=== PATIENT | male | born 1960 | race Caucasian/White ===

== ENCOUNTER 2017-10-10 12:42 | Emergency (ER) | payer SELFPAY ==
[~2017-10-10] VITALS: Ht 172.7 cm; Wt 59.1 kg
[2017-10-10 12:57] VITALS: BP 146/85; PULSE 107; RESP 20; TEMP 97.7; O2SAT 91
--- NOTE | 2017-10-10 14:57 | PD ---
HPI Chief Complaint: Alcohol/Drug Intoxication Time Seen by Provider: 14:28 Travel History International Travel<30 days: No Contact w/Intl Traveler<30days: No Traveled to known affect area: No History of Present Illness HPI 57-year-old male presents to the emergency department requesting detox because he has been drinking alcohol "way too much for the past 2 months." He denies suicidal or homicidal ideations. Reports hearing voices and seeing things. Denies illicit drug use. Says he last had alcohol today, prior to the police dropping him off at the emergency department for detox. Reports being homeless. Says he is hungry and asking for sandwich. He has no emergent medical complaints. Denies fever, vomiting, chest pain, shortness of breath, abdominal pain, change in urine or stool. Onset unknown. Duration chronic. Symptoms are mild to moderate in severity. No known aggravating or relieving factors. No known allergies. Has history of seizures, COPD. Last took Dilantin 5 years ago. No primary care provider. Has no other medical complaints. No other modifying factors or associated signs and symptoms. PFSH Past Medical History COPD: Yes Diminished Hearing: No Seizures: Yes ?: Not Past Surgical History Other Surgery: Yes (L HAND SX) Social History Alcohol Use: Yes (LAST DRINK 1300 TODAY) Tobacco Use: Yes (1 PPD) Substance Use: No Allergies-Medications Reported Meds & Prescriptions Reported Meds & Active Scripts Active No Active Prescriptions or Reported Medications Review of Systems Except as stated in HPI: all other systems reviewed are Neg Physical Exam Narrative GENERAL: Well-nourished, well-developed male patient, in no acute distress; disheveled SKIN: Warm and dry. HEAD: Atraumatic. Normocephalic. EYES: Pupils equal and round. ENT: Mucosa pink and moist. NECK: Supple. Trachea midline. CARDIOVASCULAR: Regular rate and rhythm. No murmur appreciated. RESPIRATORY: No accessory muscle use. Clear to auscultation. Breath sounds equal bilaterally. GASTROINTESTINAL: Abdomen soft, non-tender, nondistended. Hepatic and splenic margins not palpable. Bowel sounds are active 4 quadrants. MUSCULOSKELETAL: No obvious deformities. No clubbing. No cyanosis. No edema. NEUROLOGICAL: Awake and alert. Oriented 3. No obvious cranial nerve deficits. Motor grossly within normal limits. Normal speech. Moves all extremities. 5/5 strength to all extremities. PSYCHIATRIC: No delusional thought processes. No hallucinations. Data Data Last Documented VS Vital Signs Date Time Temp Pulse Resp B/P (MAP) Pulse Ox O2 Delivery O2 Flow Rate FiO2 10/10/17 12:57 97.7 107 20 146/85 (105) 91 Orders Orders Ed Discharge Order (10/10/17 14:57) MDM Medical Decision Making Medical Screen Exam Complete: Yes Emergency Medical Condition: Yes Medical Record Reviewed: Yes Differential Diagnosis Alcohol abuse, alcohol dependence, alcohol intoxication, medical clearance Narrative Course 57-year-old male with history of alcohol abuse requesting detox. Denies suicidal or homicidal ideations. Says he just wants to go to detox. He has no emergent medical complaints. Patient was given food and patient provided bus pass to [facility] for detox. Instructed patient to follow-up at [facility] for detox. Instructed patient to follow up with primary care provider. Patient verbalizes understanding and agreement with treatment plan. Patient is medically cleared and stable for discharge. Discussed reasons to return to the emergency department. Patient agrees with treatment plan. The patients vital signs are stable and the patient is stable for outpatient follow- up and treatment. Patient discharged home, stable and in no acute distress. Diagnosis Primary Impression: Alcohol abuse Referrals: [facility] (Out patient) [facility] Primary Care Physician Psychiatrist [facility] Patient Instructions: Abuse of Alcohol (ED), Alcohol Dependence (ED), Alcohol Intoxication (ED), General Instructions Additional Instructions: Stop drinking alcohol Follow-up with community resource, such as Alcoholics Anonymous Follow-up with primary care provider Follow-up with [facility] Return to the emergency department immediately with worsening of symptoms Med/Other Pt SpecificInfo: No Change to Meds, No Meds Exist/No RX given Scripts No Active Prescriptions or Reported Meds Disposition: 01 DISCHARGE HOME Condition: Stable Radha Hernandez Oct 10, 2017 14:57
[2017-10-10 15:18] VITALS: BP 142/67
== END 2017-10-10 15:22 | disposition home or self-care (01) ==
LOC: NEPD 12:42
DX: F10.10 Alcohol abuse, uncomplicated (principal); F17.200 Nicotine dependence, unspecified, uncomplicated
CPT/HCPCS: 99281